=== PATIENT | male | born 2000 ===

== ENCOUNTER 2023-04-05 11:06 | Emergency (ER) | payer SELFPAY ==
[2023-04-05 11:09] VITALS: BP 110/69; PULSE 66; RESP 16; TEMP 36.9; O2SAT 98; BMI 23.4
--- NOTE | 2023-04-05 11:12 | ED.GENADULT ---
HPI - General Adult General Time Seen by Provider: 11:12 Date Seen: 04/05/23 Chief complaint: Eye Problems Stated complaint: eye infection Time Seen by Provider: 04/05/23 11:11 Source: patient, RN notes reviewed and old records reviewed Mode of arrival: ambulatory Limitations: no limitations History of Present Illness HPI narrative: 22-year-old male who presents today with pain of the left lower eyelid that has been going on for couple of days. He has been using cool packs warm packs, Tylenol and ibuprofen, and saline drops with no improvement. No vision changes. Related Data Previous Rx's Medication Instructions Recorded erythromycin 5 mg/gram (0.5 %) eye 0.5 inch ophthalmic (eye) QID 5 04/05/23 ointment days #3.5 grams Allergies Allergy/AdvReac Type Severity Reaction Status Date / Time No Known Allergies Allergy Verified 04/05/23 11:15 Review of Systems Status of ROS: Reports: 10 or more systems reviewed and unremarkable except as noted in History and below PFSH PFSH Social History Smoking Status: Never smoker How often do you have a drink containing alcohol: 2-4 times a month How often do you have six or more drinks on one occasion: Less than monthly AUDIT-C Alcohol total score: 3 Non-prescribed substance use: denies use Exam Narrative: Exam Narrative: General: well nourished , NAD Head: Atraumatic and normocephalic ENT: External ears and external nose are normal Eyes: Conjunctiva clear, pupils are equal reactive, external ocular motions are intact. Left medial eyelid with swelling erythema, on eyelid eversion there two pustules Neck: Full spontaneous range of motion of the neck Lungs: No respiratory distress Musculoskeletal: No tenderness or deformity Neurologic: No gross focal neurologic deficits Skin: No rashes Psych: Mood and affect are appropriate Const: Vital Signs, click to edit/add: Vital Signs - 24 hr 04/05/23 11:09 Temperature 98.5 F Pulse Rate [Pulse Oximeter] 66 Respiratory Rate 16 Blood Pressure [Le ft Upper Arm] 110/69 Pulse Oximetry 98 Oxygen Delivery Me thod Room Air Course Course ED Course: Patient seen examined, prior records reviewed. Patient with left eyelid swelling for couple of days, exam, has 2 pustules on the eye orbital surface of the lid consistent with stye. Will be started on erythromycin ointment, discussed warm packs, and follow up with eye clinic in 1 week if not better. Vital Signs Vital signs: Initial Vital Signs Temperature 98.5 F 04/05/23 11:09 Temperature Source Temporal Artery Scan 04/05/23 11:09 Pulse Rate 66 04/05/23 11:09 Respiratory Rate 16 04/05/23 11:09 Blood Pressure 110/69 04/05/23 11:09 Blood Pressure Mean 82 04/05/23 11:09 Blood Pressure Position Sitting 04/05/23 11:09 Pulse Oximetry 98 04/05/23 11:09 Oxygen Delivery Method Room Air 04/05/23 11:09 Vital Signs Temperature 98.5 F 04/05/23 11:09 Pulse Rate 66 04/05/23 11:09 Respiratory Rate 16 04/05/23 11:09 Blood Pressure 110/69 04/05/23 11:09 Pulse Oximetry 98 04/05/23 11:09 Oxygen Delivery Method Room Air 04/05/23 11:09 Temperature 98.5 F 04/05/23 11:09 Pulse Rate 66 04/05/23 11:09 Respiratory Rate 16 04/05/23 11:09 Blood Pressure 110/69 04/05/23 11:09 Pulse Oximetry 98 04/05/23 11:09 Oxygen Delivery Method Room Air 04/05/23 11:09 Medical Decision Making Medical Records Medical records reviewed: Yes I reviewed the patient's medical records Lab Data Lab results reviewed: Yes I reviewed the patient's lab results Discharge Plan Discharge Clinical Impression: External hordeolum Patient Disposition: Home, Self-Care Condition: Stable Instructions: Maikel (ED) Additional Instructions: Warm packs 10-15 minutes the time every 2-3 hours while awake for the next 48 hours Antibiotic ointment as prescribed Call [facility] [phone] to schedule appointment next week Activity Level: No Restrictions Prescriptions: New erythromycin 5 mg/gram (0.5 %) ointment 0.5 inch ophthalmic (eye) QID 5 Days Qty: 3.5 1RF Stand Alone Forms: [employer] Info Instructions
[2023-04-05 11:50] VITALS: BP 103/64; PULSE 74; RESP 16
== END 2023-04-05 11:50 | disposition home or self-care (01) ==
LOC: ED 11:31
PROVIDERS: Emergency Provider Family Medicine
DX: H00.014 Hordeolum externum left upper eyelid (principal)
CPT/HCPCS: 99282; 99283

== ENCOUNTER 2023-06-20 14:39 | Emergency (ER) | payer OTHER, SELFPAY ==
[2023-06-20 14:45] VITALS: BP 117/64; PULSE 81; RESP 14; TEMP 36.9; O2SAT 98; BMI 23.4
--- NOTE | 2023-06-20 15:05 | ED.GENADULT ---
HPI - General Adult General Time Seen by Provider: 15:05 Date Seen: 06/20/23 Chief complaint: Hip Injury/Pain Stated complaint: L side hip injury Time Seen by Provider: 06/20/23 15:05 Source: patient and RN notes reviewed Mode of arrival: ambulatory Limitations: no limitations History of Present Illness HPI narrative: Patient is a 22-year-old male previously healthy who comes to the emergency room for evaluation of left hip pain after lifting something heavy this morning at work. He states he was standing and lifted straight up. He had sudden onset of left hip pain which is persisting. The pain does not radiate. He has not had this happen in the past. He does state that he has had back pain before but this is not worse than normal. He denies numbness or tingling or weakness. Pain is worsened by standing or walking. Lying down seems to help. Related Data Home Medications Medication Instructions Recorded Confirmed No Known Home Medications 06/20/23 06/20/23 Allergies Allergy/AdvReac Type Severity Reaction Status Date / Time No Known Allergies Allergy Verified 06/20/23 14:45 Review of Systems Status of ROS: Reports: 6 or more systems reviewed and unremarkable except as noted in History and below Const: Denies: fever PFSH PFSH Social History Smoking Status: Never smoker How often do you have a drink containing alcohol: 2-4 times a month How often do you have six or more drinks on one occasion: Less than monthly AUDIT-C Alcohol total score: 3 Non-prescribed substance use: denies use Exam Narrative: Exam Narrative: Hong is alert and oriented. Very pleasant gentleman. I initially dial up sign language interpreter but he states that this is not needed. We are of the conversant [place]. External ears eyes nose clear. No respiratory distress. Examination of the left hip shows no tenderness in the buttock over the greater trochanter or lateral hip. There is no ecchymosis noted and no masses. Passive movement of the hip in all gloria does not increase discomfort. Internal external rotation of the hip only cause slight discomfort in extremes Moving all lower extremities. Sensation motor is intact. Const: Vital Signs, click to edit/add: Vital Signs - 24 hr 06/20/23 14:45 Temperature 98.4 F Pulse Rate [Pulse Oximeter] 81 Respiratory Rate 14 Blood Pressure [Ri ght Upper Arm] 117/64 Pulse Oximetry 98 Documenting provider has reviewed patient's vital signs: yes Course Course ED Course: At this time differential diagnosis includes but is not limited to potential pathological hip fracture, labral tear, musculoskeletal injury, radicular symptoms from low back injury. Will obtain x-ray of the hip. Reevaluation(s) Reevaluation #1: Patient noted to be walking about in room with a slight limp. No recent fevers chills. Receptive to ibuprofen 400 mg over on injection of Toradol. Vital Signs Vital signs: Initial Vital Signs Temperature 98.4 F 06/20/23 14:45 Temperature Source Temporal Artery Scan 06/20/23 14:45 Pulse Rate 81 06/20/23 14:45 Pulse Rhythm Regular 06/20/23 14:45 Respiratory Rate 14 06/20/23 14:45 Blood Pressure 117/64 06/20/23 14:45 Blood Pressure Mean 81 06/20/23 14:45 Blood Pressure Position Sitting 06/20/23 14:45 Pulse Oximetry 98 06/20/23 14:45 Vital Signs Temperature 98.4 F 06/20/23 14:45 Pulse Rate 81 06/20/23 14:45 Respiratory Rate 14 06/20/23 14:45 Blood Pressure 117/64 06/20/23 14:45 Pulse Oximetry 98 06/20/23 14:45 Temperature 98.4 F 06/20/23 14:45 Pulse Rate 81 06/20/23 14:45 Respiratory Rate 14 06/20/23 14:45 Blood Pressure 117/64 06/20/23 14:45 Pulse Oximetry 98 06/20/23 14:45 Medical Decision Making MDM Narrative Medical decision making narrative: 1. Left hip injury-patient noted to have pain with lifting. My initial concern was a labral injury. No evidence of fractures on x-ray but there is evidence of increased cortical thickening raising the possibility of a femoral acetabular impingement. Patient will receive ibuprofen 400 mg at this time. Will then have patient follow up with Orthopedics for further evaluation. A note was given today for patient's work. Patient may use ibuprofen or Tylenol as needed at home. 2. Disposition-home at this time. Return for any worsening symptoms. Imaging Data Left hip x-ray: Attestation: I have reviewed the pertinent imaging results. My impression: I do not note any acute fractures Radiologist's impression: o fracture or dislocation is seen. Hip joint spaces are preserved. Periarticular soft tissues are unremarkable. There is a question of subtle cortical thickening along the lateral aspect of the junction of the left femoral head and neck, raising the possibility of cam type femoral acetabular impingement; clinical correlation is recommended Discharge Plan Discharge Clinical Impression: Injury of hip, left Patient Disposition: Home, Self-Care Condition: Unchanged Additional Instructions: Ibuprofen 400 mg every 8 hours as needed for discomfort. Ice to area of pain may be helpful. Follow-up with orthopedics here in [place]. The phone number is [phone]. The address is: [address] [place] [address] Prescriptions: No Action No Known Home Medications Follow Up/Referrals: Provider,Not a Local [Primary Care Provider] - Stand Alone Forms: [employer] Info Instructions
--- NOTE | 2023-06-20 15:11 | CRLHL7_ITS ---
For Patients: As a result of the Cures Act, medical imaging exams and procedure reports are released immediately into your electronic medical record. You may view this report before your referring provider. If you have questions, please contact your health care provider. INDICATION: Sudden pain with lifting. COMPARISON: None. FINDINGS/IMPRESSION: Pelvis, one view and left hip, two views. No fracture or dislocation is seen. Hip joint spaces are preserved. Periarticular soft tissues are unremarkable. There is a question of subtle cortical thickening along the lateral aspect of the junction of the left femoral head and neck, raising the possibility of cam type femoral acetabular impingement; clinical correlation is recommended. Dictated by Christian Fiore MD @ 06/20/2023 4:21:14 PM Dictated by: Christian Fiore MD @ 06/20/2023 16:21:28 (Electronically Signed)
[2023-06-20 17:25] VITALS: BP 117/64; PULSE 81; RESP 14; TEMP 36.9
[2023-06-20] MEDS: IBUPROFEN 200 MG TABLET 400 MG PO (17:25)
== END 2023-06-20 17:26 | disposition home or self-care (01) ==
PROVIDERS: Emergency Provider Family Medicine
DX: M25.552 Pain in left hip (principal); X50.0XXA Overexertion from strenuous movement or load, initial encounter
CPT/HCPCS: 73502; 99283; A9270

== ENCOUNTER 2023-07-23 09:13 | Outpatient (CLI) | payer OTHER, SELFPAY ==
--- NOTE | 2023-07-23 09:15 | CRLHL7_ITS ---
For Patients: As a result of the Century Cures Act, medical imaging exams and procedure reports are released immediately into your electronic medical record. You may view this report before your referring provider. If you have questions, please contact your health care provider. HISTORY: Strain of muscle, fascia and tendon of left hip. TECHNIQUE: Noncontrast MRI of the left hip. COMPARISON: Radiographs 06/20/2023. 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 Decreased acetabular anteversion superiorly without definitive retroversion. No left hip joint effusion. The femoral head and acetabular articular surfaces are smooth without focal articular cartilage defect. The acetabular labrum is intact. Right hip: Technique not optimized for evaluation for internal derangement given the left hip technique. There is no right hip joint effusion. The articular surfaces are smooth without focal articular cartilage defect. Osseous structures: There is no acute fracture, stress change or avascular necrosis. Musculotendinous structures and bursae: No distal gluteal tendon tear nor trochanteric bursal fluid collection. Common hamstring tendons are intact. Distal iliopsoas tendons are intact. Conjoined adductor tendons are intact at their medial pubic attachment site. Other findings: The pubic symphysis is intact. Sacroiliac joints are maintained. No soft tissue mass or fluid collection. Intrapelvic soft tissues: No significant inguinal hernia. No deep pelvic fluid collection. IMPRESSION: 1. 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 Articular surfaces are maintained. No definite labral tear. No hip joint effusion. 2. No fracture, AVN or stress change. 3. No tendon tearing nor bursitis. Dictated by Jones Rios MD @ 07/24/2023 8:21:58 AM (Electronically Signed)
== END 2023-07-23 09:14 | disposition home or self-care (01) ==
PROVIDERS: Visit Provider Orthopaedic Surgery
DX: S76.012A Strain of muscle, fascia and tendon of left hip, initial encounter (principal)
CPT/HCPCS: 73721

== ENCOUNTER 2023-08-22 09:45 | Outpatient (RCR) | payer OTHER, BC, SELFPAY | END 2023-11-30 12:25 | disposition home or self-care (01) | PROVIDERS: Visit Provider Orthopaedic Surgery | DX: S76.012D Strain of muscle, fascia and tendon of left hip, subsequent encounter (principal); M25.552 Pain in left hip; Z51.89 Encounter for other specified aftercare | CPT/HCPCS: 97110; 97140; 97161 ==